=== PATIENT | female | born 1995 | race Caucasian/White ===

== ENCOUNTER 2018-07-09 12:51 | Emergency (ER) | payer OTHER ==
[2018-07-09 13:54] LABS: #Eosinphils 0.2 thou/uL (0.0-0.7); #Lymphocytes 3.1 thou/uL (1.20-3.40); #Monocytes 0.3 thou/uL (0.11-0.59); #Neutrophils 5.8 thou/uL (1.40-6.50); %Basophils 0.5 % (0.0-1.0); %Eosinophils 1.7 % (0.0-10.0); %Lymphocytes 33.2 % (21.0-51.0); %Monocytes 3.1 % (0.0-10.0); %Neutrophils 61.5 % (42.0-75.0); Hemoglobin 14.1 g/dL (12.0-16.0); Mean Corpuscular Volume 90.8 fL (78.0-98.0); Mean Platelet Volume 6.9 fL (7.4-10.4); Platelet Count 361 thou/uL (130-400); RBC Distribution Width 12.5 % (11.5-14.5); White Blood Cell (WBC) Count 9.4 thou/uL (4.8-10.8)
[2018-07-09 14:15] LABS: ALT (SGPT) 27 U/L (8-55); AST (SGOT) 18 U/L (5-34); Albumin 4.2 g/dL (3.5-5.0); Alkaline Phosphatase 79 U/L (40-150); Anion Gap 10 mmol/L (10-20); BUN (Urea Nitrogen) 12 mg/dL (7.0-18.7); Bilirubin, Total 0.4 mg/dL (0.2-1.2); Calc. Creatinine Clearance 0 mL/min (70-130); Calcium 9.5 mg/dL (7.8-10.44); Carbon Dioxide 28 mmol/L (22-29); Chloride 103 mmol/L (98-107); Estimated GFR-MDRD 88; Globulin 3.3 g/dL (2.4-3.5); Glucose 145 mg/dL (70-105); Potassium 3.8 mmol/L (3.5-5.1); Protein, Total 7.5 g/dL (6.0-8.3); Sodium 137 mmol/L (136-145)
[2018-07-09] MEDS ORDERED: diphenhydrAMINE 50 MG/ML VIAL ONE (14:37)
[2018-07-09] MEDS ORDERED: Metoclopramide HCl 10 MG/2 ML VIAL ONE (14:37)
--- NOTE | 2018-07-09 14:37 | CT ---
CT OF BRAIN PERFORMED WITHOUT CONTRAST ENHANCEMENT: 07/09/18 HISTORY: Headache. Ventricular and cisternal system is within normal limits. There is no signs of intracerebral hemorrha ge or extra-axial fluid collections. Mastoid air cells and visualized sinuses are clear. IMPRESSION: No acute intracranial abnormalities. POS: [facility]
[2018-07-09] MEDS ORDERED: Ketorolac Tromethamine 30 MG/ML VIAL ONE (15:57)
[2018-07-09 16:01] LABS: CKMB 0.8 ng/mL (0-6.6); Troponin I Less than 0.010 ng/mL (< 0.028)
--- NOTE | 2018-07-12 12:27 | EKG ---
Test Reason : Blood Pressure : / mmHG Vent. Rate : 071 BPM Atrial Rate : 071 BPM P-R Int : 164 ms QRS Dur : 096 ms QT Int : 372 ms P-R-T Axes : 022 040 000 degrees QTc Int : 404 ms Normal sinus rhythm Nonspecific T wave abnormality Abnormal ECG Confirmed by SLOANE FREGOSO ([id number]), continuity editor ISMAEL WU ([id number]) on 07/12/2018 12:26:49 PM Referred By: Confirmed By:SLOANE FREGOSO
== END 2018-07-09 17:00 | disposition home or self-care (01) ==
LOC: ERS 12:51
DX: R51 Headache (principal); R07.89 Other chest pain; E03.9 Hypothyroidism, unspecified; Z79.899 Other long term (current) drug therapy; Z79.84 Long term (current) use of oral hypoglycemic drugs
CPT/HCPCS: 36415; 70450; 80053; 82553; 84484; 85025; 93005; 96361; 96374; 96375; J1200; J1885; J2765

== ENCOUNTER 2019-09-13 19:54 | Emergency (ER) | payer SELFPAY ==
[2019-09-13 21:42] LABS: #Basophils 0.1 thou/uL (0.0-0.2); #Eosinphils 0.2 thou/uL (0.0-0.7); #Monocytes 0.5 thou/uL (0.11-0.59); #Neutrophils 6.6 thou/uL (1.40-6.50); %Basophils 0.7 % (0.0-1.0); %Eosinophils 1.5 % (0.0-10.0); %Monocytes 4.6 % (0.0-10.0); %Neutrophils 64.2 % (42.0-75.0); Hemoglobin 14.3 g/dL (12.0-16.0); Mean Corpuscular HGB CONC 34.4 g/dL (32.0-36.0); Mean Corpuscular Hemoglobin 31.1 pg (27.0-31.0); Mean Corpuscular Volume 90.6 fL (78.0-98.0); Mean Platelet Volume 7.1 fL (7.4-10.4); Platelet Count 342 thou/uL (130-400); RBC Distribution Width 12.5 % (11.5-14.5); Red Blood Cell (RBC) Count 4.59 mill/uL (4.20-5.40); White Blood Cell (WBC) Count 10.3 thou/uL (4.8-10.8)
--- NOTE | 2019-09-13 21:49 | RAD ---
XR Chest 1 View Portable History: Cough Comparison: Radiograph May 31, 2019 Findings: Lungs are clear. No pneumothorax. No effusion. No acute osseous abnormality. Impression: No acute intrathoracic abnormality.
[2019-09-13 22:43] LABS: Digoxin 0.55 ng/mL (0.8-2.0)
[2019-09-13 22:43] LABS: ALT (SGPT) 28 U/L (8-55); AST (SGOT) 19 U/L (5-34); Albumin 4.3 g/dL (3.5-5.0); Alkaline Phosphatase 79 U/L (40-110); Anion Gap 14 mmol/L (10-20); BUN (Urea Nitrogen) 9 mg/dL (7.0-18.7); Bilirubin, Total 0.3 mg/dL (0.2-1.2); CK (CPK) 122 U/L (29-168); Calc. Creatinine Clearance 0 mL/min (70-130); Calcium 9.4 mg/dL (7.8-10.44); Carbon Dioxide 23 mmol/L (22-29); Chloride 105 mmol/L (98-107); Estimated GFR-MDRD Greater than 90; Globulin 3.2 g/dL (2.4-3.5); Glucose 159 mg/dL (70-105); Potassium 4.3 mmol/L (3.5-5.1); Protein, Total 7.5 g/dL (6.0-8.3); Sodium 138 mmol/L (136-145)
[2019-09-13] MEDS ORDERED: Ketorolac Tromethamine 30 MG/ML VIAL ONE (22:52)
[2019-09-13] MEDS ORDERED: hydrOXYzine 25 MG TAB ONE (22:52)
[2019-09-13 23:30] LABS: Pregnancy Test - Urine (BHCG) Negative (Negative); Pregu Control Background? CLEAR/WHITE (CLR/WHITE); Pregu Control Bar Appear? YES (CONTROL BAR); Specific Gravity 1.021 (1.002-1.036)
--- NOTE | 2019-09-14 07:39 | ULT ---
PRELIMINARY REPORT/[facility]/EMERGENCY AFTER HOURS PROCEDURE PROCEDURE INFORMATION: Exam: US Duplex Left Upper Extremity Veins, Limited Exam date and time: 09/14/2019 12:22 AM Age: 24 years old Clinical history: Other: Pain and swelling to lue worse to forearm and wrist TECHNIQUE: Imaging protocol: Real-time Duplex ultrasound of the Left Upper Extremity with 2-D goodwin scale, color Doppler flow and spectral waveform analysis with image documentation. Limited exam focused on the left upper extremity veins. COMPARISON: No relevant prior studies available. FINDINGS: Left deep veins: Unremarkable. Axillary and brachial veins are patent throughout without thrombus. Normal Doppler waveforms. Normal compressibility and/or augmentation response. Visualized internal jugular and subclavian veins are patent. Left superficial veins: Unremarkable. Visualized cephalic and basilic veins are patent without thrombus. Soft tissues: No LEFT wrist fluid collection. IMPRESSION: 1. No acute findings. No evidence of deep vein thrombosis. 2. No LEFT wrist fluid collection. Thank you for allowing us to participate in the care of your patient. Dictated and Authenticated by: Rosalio Simms MD 09/14/2019 1:46 AM Central Time ([place] & [place]) FINAL REPORT VENOUS DUPLEX SONOGRAM LEFT UPPER EXTREMITY: DATE: 09/14/2019. TIME: Performed on emergency basis at 0033 hours. HISTORY: Left arm pain and edema. FINDINGS: Agree with the preliminary report by Dr. Simms from [facility]. No sonographic evidence of DV T. There is good color and spectral Doppler flow and compression. No abnormal fluid collections at the wrist. Transcribed Date/Time: 09/14/2019 8:28 AM
== END 2019-09-14 01:41 | disposition home or self-care (01) ==
LOC: ERS 19:54
DX: R00.2 Palpitations (principal); R07.9 Chest pain, unspecified; M79.602 Pain in left arm; E28.2 Polycystic ovarian syndrome; E03.9 Hypothyroidism, unspecified; F41.9 Anxiety disorder, unspecified; Z79.899 Other long term (current) drug therapy
CPT/HCPCS: 36415; 71045; 80053; 80162; 81025; 82550; 83880; 84443; 84484; 85025; 93005; 93010; 96372; J1885

== ENCOUNTER 2021-06-23 10:56 | Outpatient (CLI) | payer BC, MEDICAID | END 2021-06-23 10:57 | disposition home or self-care (01) | LOC: BICULT 10:56 | PROVIDERS: ATTEND Internal Medicine | DX: N63.20 Unspecified lump in the left breast, unspecified quadrant (principal) ==

== ENCOUNTER 2022-03-31 19:43 | Emergency (ER) | payer BC, SELFPAY ==
[2022-03-31] MEDS ORDERED: Dexamethasone 10 MG/ML VIAL ONE (20:50)
== END 2022-03-31 20:56 | disposition home or self-care (01) ==
LOC: ERS 19:43
DX: H66.91 Otitis media, unspecified, right ear (principal); J02.9 Acute pharyngitis, unspecified; E03.9 Hypothyroidism, unspecified; Z79.899 Other long term (current) drug therapy; E28.2 Polycystic ovarian syndrome
CPT/HCPCS: 99283; J1100

== ENCOUNTER 2023-01-02 10:18 | Outpatient (CLI) | payer BC | END 2023-01-02 10:19 | disposition home or self-care (01) | LOC: DTY/OP 10:18 | PROVIDERS: ATTEND Specialist | DX: E66.01 Morbid (severe) obesity due to excess calories (principal) | CPT/HCPCS: 97802 ==

== ENCOUNTER 2023-02-05 08:48 | Day surgery (SDC) | payer BC ==
[2023-02-04 11:12] VITALS: BMI 48.5
[2023-02-05] MEDS ORDERED: Acetaminophen 500 MG TAB ONE (10:37)
[2023-02-05] MEDS ORDERED: Ketorolac Tromethamine 30 MG/ML VIAL ONE (10:37)
[2023-02-05] MEDS ORDERED: Bupivacaine/Epinephrine 0.25% 30 ML VIAL ONE (13:53)
[2023-02-05] MEDS ORDERED: Sodium Chloride 0.9% 100 ML ONE (13:59)
[2023-02-05] MEDS ORDERED: CEFAZOLIN 2 GM VIAL ONE (13:59)
[2023-02-05] MEDS ORDERED: fentaNYL PF 100 MCG/2 ML SYRINGE ONE (14:05)
[2023-02-05] MEDS ORDERED: Famotidine/PF 20 mg/2ml Vial ONE (14:05)
[2023-02-05] MEDS ORDERED: Ondansetron PF 4 MG/2 ML Vial ONE (14:24)
[2023-02-05] MEDS ORDERED: Dexamethasone 20 MG/5 ML VIAL ONE (14:24)
[2023-02-05] MEDS ORDERED: PROPOFOL 200 MG/20 ML VIAL ONE (14:24)
[2023-02-05] MEDS ORDERED: Succinylcholine Chloride 100 MG/5 ML SYRINGE FS ONE (14:24)
[2023-02-05] MEDS ORDERED: Metoclopramide HCl 10 MG/2 ML VIAL ONE (14:24)
[2023-02-05] MEDS ORDERED: fentaNYL 50 mcg/mL 1 mL Vial ONE ×2 (15:50→16:19)
[2023-02-05] MEDS ORDERED: HYDROmorphone 0.5 MG/0.5 ML SYRINGE ONE (16:52)
[2023-02-05] MEDS ORDERED: HYDROcodone/Acetaminophen 5/325 mg Tablet ONE ×2 (17:15)
== END 2023-02-05 18:05 | disposition home or self-care (01) ==
LOC: SDC 08:48
PROVIDERS: ATTEND Specialist
PROC: 0HBU0ZZ Excision of Left Breast, Open Approach (ICD-10-PCS; principal; 2023-02-05)
PROC: 0HSXXZZ Reposition Left Nipple, External Approach (ICD-10-PCS; principal; 2023-02-05)
PROC: 0H9U3ZZ Drainage of Left Breast, Percutaneous Approach (ICD-10-PCS; principal; 2023-02-05)
DX: N60.12 Diffuse cystic mastopathy of left breast (principal); N61.1 Abscess of the breast and nipple; E03.9 Hypothyroidism, unspecified; E28.2 Polycystic ovarian syndrome; I25.10 Atherosclerotic heart disease of native coronary artery without angina pectoris; I10 Essential (primary) hypertension; E66.01 Morbid (severe) obesity due to excess calories; Z68.42 Body mass index [BMI] 45.0-49.9, adult; Z79.84 Long term (current) use of oral hypoglycemic drugs; Z79.890 Hormone replacement therapy; Z79.899 Other long term (current) drug therapy; Z88.8 Allergy status to other drugs, medicaments and biological substances
CPT/HCPCS: 88307; J1100; J1170; J1885; J2405; J2704; J2765; J3010; J3490; S0028

== ENCOUNTER 2023-04-26 13:27 | Outpatient (CLI) | payer BC ==
[2023-04-26 14:34] LABS: #Eosinphils 0.1 10x3/uL (0.0-0.5); #Monocytes 0.4 10x3/uL (0.0-1.1); #Neutrophils 6.5 10x3/uL (1.5-8.4); %Basophils 0.4 % (0.0-2.0); %Eosinophils 1.1 % (0.0-6.0); %Monocytes 4.1 % (0.0-10.0); %Neutrophils 67.1 % (40.0-75.0); Hemoglobin 12.2 g/dL (12.0-15.5); Mean Corpuscular HGB CONC 33.2 g/dL (32.0-36.0); Mean Corpuscular Hemoglobin 29.2 pg (27.0-33.0); Mean Platelet Volume 9.4 fl (7.4-10.4); Platelet Count 378 10x3/uL (150-450); RBC Distribution Width 13.2 % (11.5-14.5); Red Blood Cell (RBC) Count 4.18 10x6/uL (3.90-5.03); White Blood Cell (WBC) Count 9.7 10x3/uL (3.5-10.5)
[2023-04-26 14:56] LABS: ALT (SGPT) 21 U/L (8-55); AST (SGOT) 19 U/L (5-34); Albumin 4.6 g/dL (3.5-5.0); Alkaline Phosphatase 76 U/L (40-110); Anion Gap 15 mmol/L (10-20); BUN (Urea Nitrogen) 18 mg/dL (7.0-18.7); Bilirubin, Total 0.4 mg/dL (0.2-1.2); Calc. Creatinine Clearance 0 mL/min (70-130); Calcium 9.5 mg/dL (7.8-10.44); Carbon Dioxide 24 mmol/L (22-29); Chloride 104 mmol/L (98-107); Estimated GFR 100; Globulin 2.4 g/dL (2.4-3.5); Glucose 90 mg/dL (70-105); Potassium 4.6 mmol/L (3.5-5.1); Sodium 138 mmol/L (136-145)
[2023-04-26 15:04] LABS: BHCG - Serum Negative (NEGATIVE); Pregs Control Background? CLEAR/WHITE (CLR/WHITE); Pregs Control Bar Appear? YES (CONTROL BAR)
[2023-04-26 19:53] LABS: Hemoglobin A1c 5.6 % (4.0-6.0)
== END 2023-04-26 13:28 | disposition home or self-care (01) ==
LOC: LABBT 13:27
PROVIDERS: ATTEND Specialist
DX: Z01.818 Encounter for other preprocedural examination (principal); E66.01 Morbid (severe) obesity due to excess calories
CPT/HCPCS: 71046; 80053; 83036; 84703; 85025; 93005; 93010

== ENCOUNTER 2023-05-21 08:41 | Day surgery (SDC) | payer BC ==
[~2023-05-21 08:41] MED LIST: Multivitamins, Adult 10 ML, Thiamine HCl 100 MG in Sodium Chloride 0.9% 1,000 ML IV SCH; Ondansetron PF 4 MG/2 ML Vial IVP PRN; Sodium Chloride 0.9% 1,000 ML IV SCH
[2023-05-21 09:54] VITALS: BP 121/59; TEMP 98.4
[2023-05-21] MEDS ORDERED: Ondansetron PF 4 MG/2 ML Vial ONE (10:47)
== END 2023-05-21 11:50 | disposition home or self-care (01) ==
LOC: ONC/OP 08:41
PROVIDERS: ATTEND Specialist
DX: E86.0 Dehydration (principal)
CPT/HCPCS: 96361; 96365; 96375; J2405; J3411; J7050